=== PATIENT | male | born 1955 | race American Indian/Alaskan Native ===

== ENCOUNTER 2017-02-12 12:39 | Emergency (ER) | payer MEDICARE ==
[2017-02-12 14:29] LABS: Basophils % (Auto) 0.4 % (0.0-1.8); Eosinophils % (Auto) 0.7 % (0.0-4.3); Hemoglobin 14.4 gm/dl (11.8-15.2); Mean Corpuscular HGB Conc 33 % (32-34); Mean Corpuscular Hemoglobin 29 pg (28-32); Mean Corpuscular Volume 89 fl (84-94); Platelet Count 326 K/mm3 (140-440); Red Blood Count 4.92 M/mm3 (3.65-5.03); Red Cell Distribution Width 15.3 % (13.2-15.2); White Blood Count 7.3 K/mm3 (4.5-11.0)
--- NOTE | 2017-02-12 14:37 | Emergency Department Report ---
ED Palpitations HPI - General Chief Complaint: Arrhythmia/Palpitations Stated Complaint: HEART RATE 135 Time Seen by Provider: 02/12/17 14:24 Source: patient Mode of arrival: Ambulatory Limitations: No Limitations - History of Present Illness Initial Comments: 61-year-old male presents to the emergency department via EMS for evaluation of an elevated heart rate. Patient states he was receiving a routine health insurance physical this morning when the nurse practitioner noted an elevated heart rate in the 130s. Patient states he had a little lightheadedness this morning, but this has resolved. He denies chest pain, shortness of breath, or palpitations. Patient denies previous heart problems. He does admit that over the past 3 days he has been taking nutritional supplements. There are no other complaints. MD Complaint: rapid heart beat -: This morning Context: occured during rest - Related Data Home Medications Medication Instructions Recorded Confirmed Last Taken Cholecalciferol (Vitamin D3) 2,000 unit PO QDAY 02/27/16 06/10/16 Unknown [Vitamin D-3] Gabapentin [Neurontin] 300 mg PO Q8HR 02/27/16 06/10/16 Unknown Levothyroxine [Synthroid] 200 mcg PO QAM 02/27/16 06/10/16 Unknown Naproxen [Naprosyn] 500 mg PO BID 02/27/16 06/10/16 Unknown Omeprazole [PriLOSEC] 20 mg PO QDAY 02/27/16 06/10/16 Unknown Previous Rx's Medication Instructions Recorded Last Taken Type Apixaban [Eliquis] 5 mg PO BID #60 tablet 02/12/17 Unknown Rx Metoprolol Succinate 25 mg PO DAILY #30 tab.er.24h 02/12/17 Unknown Rx Allergies Allergy/AdvReac Type Severity Reaction Status Date / Time oxycodone AdvReac Nausea Verified 02/12/17 13:06 ED Review of Systems ROS: Stated complaint: HEART RATE 135 Other details as noted in HPI Comment: All other systems reviewed and negative Cardiovascular: as per HPI, other (lightheadedness, no loss of consciousness) ED Past Medical Hx - Past Medical History Previous Medical History?: Yes Hx GERD: Yes Hx of Cancer: Yes (THYROID-1981) Additional medical history: ANKYLOSING SPONDYLITIS. HYPOTHYROID. drug abuse - Surgical History Past Surgical History?: Yes Additional Surgical History: right ankle. RIGHT KNEE REPLACEMENT. LEFT WRIST SURGERY. TURP. THYROIDECTOMY - Family History Family history: no significant - Social History Smoking Status: Former Smoker Substance Use Type: None - Medications Home Medications: Home Medications Medication Instructions Recorded Confirmed Last Taken Type Cholecalciferol (Vitamin D3) 2,000 unit PO QDAY 02/27/16 06/10/16 Unknown History [Vitamin D-3] Gabapentin [Neurontin] 300 mg PO Q8HR 02/27/16 06/10/16 Unknown History Levothyroxine [Synthroid] 200 mcg PO QAM 02/27/16 06/10/16 Unknown History Naproxen [Naprosyn] 500 mg PO BID 02/27/16 06/10/16 Unknown History Omeprazole [PriLOSEC] 20 mg PO QDAY 02/27/16 06/10/16 Unknown History Apixaban [Eliquis] 5 mg PO BID #60 tablet 02/12/17 Unknown Rx Metoprolol Succinate 25 mg PO DAILY #30 tab.er.24h 02/12/17 Unknown Rx ED Physical Exam - General Limitations: No Limitations General appearance: alert, in no apparent distress - Head Head exam: Present: atraumatic, normocephalic - Eye Eye exam: Present: normal appearance, PERRL, EOMI - ENT ENT exam: Present: normal exam, normal orophraynx, mucous membranes moist - Neck Neck exam: Present: normal inspection, full ROM. Absent: tenderness - Respiratory Respiratory exam: Present: normal lung sounds bilaterally. Absent: respiratory distress - Cardiovascular Cardiovascular Exam: Present: regular rate, normal rhythm, normal heart sounds - GI/Abdominal GI/Abdominal exam: Present: soft, normal bowel sounds. Absent: distended, tenderness - Extremities Exam Extremities exam: Present: normal inspection, full ROM. Absent: tenderness - Back Exam Back exam: Present: normal inspection, full ROM. Absent: tenderness - Neurological Exam Neurological exam: Present: alert, oriented X3. Absent: motor sensory deficit - Skin Skin exam: Present: warm, dry, intact ED Course Vital Signs 02/12/17 13:02 Temperature 98.5 F Pulse Rate 95 H Respiratory 17 Rate Blood Pressure 126/86 O2 Sat by Pulse 100 Oximetry ED Medical Decision Making - Lab Data Result diagrams: 02/12/17 14:08 02/12/17 14:08 - EKG Data -: EKG Interpreted by Wy EKG shows normal: axis, ST-T waves Rate: normal - EKG Data Interpretation: other (atrial flutter with normal ventricular rate) - Medical Decision Making Laboratory results reviewed and discussed with the patient. Patient has remained asymptomatic in the emergency department. He continues to be in atrial flutter with variable block, but his ventricular rate is within normal limits. I have spoken with Dr. Napoles, cardiology. Patient will be placed on oral metoprolol and Eliquis. Patient will be discharged home to follow up with cardiology as an outpatient. - Differential Diagnosis palpitations, arrhythmia, hyperthyroidism Critical care attestation.: If time is entered above; I have spent that time in minutes in the direct care of this critically ill patient, excluding procedure time. ED Disposition Clinical Impression: Atrial flutter with controlled response Disposition: DISCHARGED TO HOME OR SELFCARE Is pt being admited?: No Does the pt Need Aspirin: No Condition: Stable Instructions: Atrial Flutter (ED) Prescriptions: Apixaban [Eliquis] 5 mg PO BID #60 tablet Metoprolol Succinate 25 mg PO DAILY #30 tab.er.24h Referrals: EDER NAPOLES MD [Staff Physician] - 7-10 days Time of Disposition: 16:44
[2017-02-12 14:39] LABS: Anion Gap 16 mmol/L; Blood Urea Nitrogen 15 mg/dL (9-20); Calcium 9.1 mg/dL (8.4-10.2); Carbon Dioxide 24 mmol/L (22-30); Chloride 101.7 mmol/L (98-107); Glucose 98 mg/dL (75-100); INR 0.99 (0.87-1.13); Potassium 4.4 mmol/L (3.6-5.0); Sodium 137 mmol/L (137-145)
[2017-02-12 17:50] VITALS: BP 117/68
== END 2017-02-12 18:00 | disposition home or self-care (01) ==
LOC: ED 12:39
DX: I48.92 Unspecified atrial flutter (principal); K21.9 Gastro-esophageal reflux disease without esophagitis; Z87.891 Personal history of nicotine dependence; Z85.850 Personal history of malignant neoplasm of thyroid
CPT/HCPCS: 36415; 80048; 84443; 84484; 85025; 85610; 85730; 93005; 93010; 99284

== ENCOUNTER 2017-10-19 17:02 | Emergency (ER) | payer MEDICARE ==
[2017-10-19 18:31] LABS: Basophils % (Auto) 0.4 % (0.0-1.8); Eosinophils % (Auto) 0.5 % (0.0-4.3); Hematocrit 49.5 % (35.5-45.6); Hemoglobin 16.2 gm/dl (11.8-15.2); Mean Corpuscular HGB Conc 33 % (32-34); Mean Corpuscular Hemoglobin 30 pg (28-32); Mean Corpuscular Volume 92 fl (84-94); Platelet Count 299 K/mm3 (140-440); Red Blood Count 5.39 M/mm3 (3.65-5.03); Red Cell Distribution Width 14.7 % (13.2-15.2); White Blood Count 8.4 K/mm3 (4.5-11.0)
[2017-10-19 18:51] LABS: Anion Gap 20 mmol/L; BUN/Creatinine Ratio 8; Blood Urea Nitrogen 10 mg/dL (9-20); Calcium 9.5 mg/dL (8.4-10.2); Carbon Dioxide 27 mmol/L (22-30); Chloride 101.5 mmol/L (98-107); Glucose 83 mg/dL (75-100); Potassium 4.6 mmol/L (3.6-5.0); Sodium 144 mmol/L (137-145)
[2017-10-19 23:12] LABS: Urine Drugs of Abuse Note Disclamer
[2017-10-19 23:39] LABS: Bilirubin,Urine NEG (Negative); Blood,Urine NEG (Negative); Ketones,Urine TR mg/dL (Negative); Leukocyte Esterase,Urine NEG (Negative); Mucus,Urine FEW /HPF; Nitrite,Urine NEG (Negative); Sperm,Urine FEW /HPF (NP)
--- NOTE | 2017-10-20 00:30 | Emergency Department Report ---
ED Psych HPI - General Chief Complaint: Psych Stated Complaint: MEDICAL CLEARANCE Time Seen by Provider: 10/19/17 23:21 Source: patient Mode of arrival: Ambulatory - History of Present Illness Initial Comments: She is a 62-year-old male past history of substance abuse who presents with suicidal ideation. Patient states that he's been depressed because he's been using cocaine. He states he wants to stop using cocaine and however he feels that his life is worthless and he has not been to a 4. Patient does not have a concrete plan for suicidal ideation. He does not hear any voices and denies any homicidal ideation. Patient states that he just has generalized body pain and just feels weak. No nausea no vomiting no chest pain. No fevers. - Related Data Home Medications Medication Instructions Recorded Confirmed Last Taken Cholecalciferol (Vitamin D3) 2,000 unit PO QDAY 02/27/16 06/10/16 Unknown [Vitamin D-3] Gabapentin [Neurontin] 300 mg PO Q8HR 02/27/16 06/10/16 Unknown Levothyroxine [Synthroid] 200 mcg PO QAM 02/27/16 06/10/16 Unknown Naproxen [Naprosyn] 500 mg PO BID 02/27/16 06/10/16 Unknown Omeprazole [PriLOSEC] 20 mg PO QDAY 02/27/16 06/10/16 Unknown Previous Rx's Medication Instructions Recorded Last Taken Type Apixaban [Eliquis] 5 mg PO BID #60 tablet 02/12/17 Unknown Rx Metoprolol Succinate 25 mg PO DAILY #30 tab.er.24h 02/12/17 Unknown Rx Allergies Allergy/AdvReac Type Severity Reaction Status Date / Time oxycodone AdvReac Nausea Verified 02/12/17 13:06 ED Review of Systems ROS: Stated complaint: MEDICAL CLEARANCE Other details as noted in HPI Constitutional: denies: chills, fever Eyes: denies: eye pain, eye discharge, vision change ENT: denies: ear pain, throat pain Respiratory: denies: cough, shortness of breath, wheezing Cardiovascular: denies: chest pain, palpitations Endocrine: no symptoms reported Gastrointestinal: denies: abdominal pain, nausea, diarrhea Genitourinary: denies: urgency, dysuria Musculoskeletal: denies: back pain, joint swelling, arthralgia Skin: denies: rash, lesions Neurological: denies: headache, weakness, paresthesias Psychiatric: depression, suicidal thoughts. denies: anxiety Hematological/Lymphatic: denies: easy bleeding, easy bruising ED Past Medical Hx - Past Medical History Previous Medical History?: Yes Hx Hypertension: Yes Hx GERD: Yes Hx Psychiatric Treatment: Yes Additional medical history: ANKYLOSING SPONDYLITIS. HYPOTHYROID. drug abuse - Surgical History Past Surgical History?: Yes Additional Surgical History: right ankle. RIGHT KNEE REPLACEMENT. LEFT WRIST SURGERY. TURP. THYROIDECTOMY - Social History Smoking Status: Unknown if ever smoked Substance Use Type: Cocaine - Medications Home Medications: Home Medications Medication Instructions Recorded Confirmed Last Taken Type Cholecalciferol (Vitamin D3) 2,000 unit PO QDAY 02/27/16 06/10/16 Unknown History [Vitamin D-3] Gabapentin [Neurontin] 300 mg PO Q8HR 02/27/16 06/10/16 Unknown History Levothyroxine [Synthroid] 200 mcg PO QAM 02/27/16 06/10/16 Unknown History Naproxen [Naprosyn] 500 mg PO BID 02/27/16 06/10/16 Unknown History Omeprazole [PriLOSEC] 20 mg PO QDAY 02/27/16 06/10/16 Unknown History Apixaban [Eliquis] 5 mg PO BID #60 tablet 02/12/17 Unknown Rx Metoprolol Succinate 25 mg PO DAILY #30 tab.er.24h 02/12/17 Unknown Rx ED Physical Exam - General Limitations: No Limitations General appearance: alert, in no apparent distress - Head Head exam: Present: atraumatic, normocephalic - Eye Eye exam: Present: normal appearance - ENT ENT exam: Present: mucous membranes moist - Neck Neck exam: Present: normal inspection - Respiratory Respiratory exam: Present: normal lung sounds bilaterally. Absent: respiratory distress - Cardiovascular Cardiovascular Exam: Present: regular rate, normal rhythm. Absent: systolic murmur, diastolic murmur, rubs, gallop - GI/Abdominal GI/Abdominal exam: Present: soft, normal bowel sounds - Rectal Rectal exam: Present: deferred - Extremities Exam Extremities exam: Present: normal inspection - Back Exam Back exam: Present: normal inspection - Neurological Exam Neurological exam: Present: alert, oriented X3 - Psychiatric Psychiatric exam: Present: normal affect, normal mood - Skin Skin exam: Present: warm, dry, intact, normal color. Absent: rash ED Course Vital Signs 10/19/17 17:55 Temperature 98.7 F Pulse Rate 82 Respiratory 16 Rate Blood Pressure 128/81 O2 Sat by Pulse 98 Oximetry ED Medical Decision Making - Lab Data Result diagrams: 10/19/17 18:12 10/19/17 18:12 Lab Results 10/19/17 10/19/17 10/19/17 Range/Units 18:12 18:12 18:12 WBC 8.4 (4.5-11.0) K/mm3 RBC 5.39 H (3.65-5.03) M/mm3 Hgb 16.2 H (11.8-15.2) gm/dl Hct 49.5 H (35.5-45.6) % MCV 92 (84-94) fl MCH 30 (28-32) pg MCHC 33 (32-34) % RDW 14.7 (13.2-15.2) % Plt Count 299 (140-440) K/mm3 Lymph % (Auto) 26.4 (13.4-35.0) % Ward % (Auto) 9.7 H (0.0-7.3) % Eos % (Auto) 0.5 (0.0-4.3) % Baso % (Auto) 0.4 (0.0-1.8) % Lymph # 2.2 (1.2-5.4) K/mm3 Ward # 0.8 (0.0-0.8) K/mm3 Eos # 0.0 (0.0-0.4) K/mm3 Baso # 0.0 (0.0-0.1) K/mm3 Seg Neutrophils % 63.0 (40.0-70.0) % Seg Neutrophils # 5.3 (1.8-7.7) K/mm3 Sodium 144 (137-145) mmol/L Potassium 4.6 (3.6-5.0) mmol/L Chloride 101.5 (98-107) mmol/L Carbon Dioxide 27 (22-30) mmol/L Anion Gap 20 mmol/L BUN 10 (9-20) mg/dL Creatinine 1.2 (0.8-1.5) mg/dL Estimated GFR > 60 ml/min BUN/Creatinine Ratio 8 % Glucose 83 (75-100) mg/dL Calcium 9.5 (8.4-10.2) mg/dL Urine Color (Yellow) Urine Turbidity (Clear) Urine pH (5.0-7.0) Ur Specific [place] (1.003-1.030) Urine Protein (Negative) mg/dL Urine Glucose (UA) (Negative) mg/dL Urine Ketones (Negative) mg/dL Urine Blood (Negative) Urine Nitrite (Negative) Urine Bilirubin (Negative) Urine Urobilinogen (<2.0) mg/dL Ur Leukocyte Esterase (Negative) Urine WBC (Auto) (0.0-6.0) /HPF Urine RBC (Auto) (0.0-6.0) /HPF U Epithel Cells (Auto) (0-13.0) /HPF Urine Mucus /HPF Urine Sperm (GRIT BLASTER) /HPF Urine Opiates Screen Urine Methadone Screen Ur Barbiturates Screen Ur Phencyclidine Scrn Ur Amphetamines Screen U Benzodiazepines Scrn Urine Cocaine Screen U Marijuana (THC) Screen Drugs of Abuse Note Plasma/Serum Alcohol < 0.01 (0-0.07) gm% 10/19/17 10/19/17 Range/Units Unknown Unknown WBC (4.5-11.0) K/mm3 RBC (3.65-5.03) M/mm3 Hgb (11.8-15.2) gm/dl Hct (35.5-45.6) % MCV (84-94) fl MCH (28-32) pg MCHC (32-34) % RDW (13.2-15.2) % Plt Count (140-440) K/mm3 Lymph % (Auto) (13.4-35.0) % Ward % (Auto) (0.0-7.3) % Eos % (Auto) (0.0-4.3) % Baso % (Auto) (0.0-1.8) % Lymph # (1.2-5.4) K/mm3 Ward # (0.0-0.8) K/mm3 Eos # (0.0-0.4) K/mm3 Baso # (0.0-0.1) K/mm3 Seg Neutrophils % (40.0-70.0) % Seg Neutrophils # (1.8-7.7) K/mm3 Sodium (137-145) mmol/L Potassium (3.6-5.0) mmol/L Chloride (98-107) mmol/L Carbon Dioxide (22-30) mmol/L Anion Gap mmol/L BUN (9-20) mg/dL Creatinine (0.8-1.5) mg/dL Estimated GFR ml/min BUN/Creatinine Ratio % Glucose (75-100) mg/dL Calcium (8.4-10.2) mg/dL Urine Color [place] (Yellow) Urine Turbidity Clear (Clear) Urine pH 5.0 (5.0-7.0) Ur Specific [place] 1.031 H (1.003-1.030) Urine Protein 30 mg/dl (Negative) mg/dL Urine Glucose (UA) Neg (Negative) mg/dL Urine Ketones Tr (Negative) mg/dL Urine Blood Neg (Negative) Urine Nitrite Neg (Negative) Urine Bilirubin Neg (Negative) Urine Urobilinogen 2.0 (<2.0) mg/dL Ur Leukocyte Esterase Neg (Negative) Urine WBC (Auto) 2.0 (0.0-6.0) /HPF Urine RBC (Auto) 8.0 (0.0-6.0) /HPF U Epithel Cells (Auto) < 1.0 (0-13.0) /HPF Urine Mucus Few /HPF Urine Sperm Few (GRIT BLASTER) /HPF Urine Opiates Screen Presumptive negative Urine Methadone Screen Presumptive negative Ur Barbiturates Screen Presumptive negative Ur Phencyclidine Scrn Presumptive negative Ur Amphetamines Screen Presumptive negative U Benzodiazepines Scrn Presumptive negative Urine Cocaine Screen Presumptive positive U Marijuana (THC) Screen Presumptive positive Drugs of Abuse Note Disclamer Plasma/Serum Alcohol (0-0.07) gm% - Radiology Data Radiology results: report reviewed, image reviewed - Medical Decision Making Cdx: Substance-induced mood disorder Medical diagnosis: Cocaine withdrawal, depression, electrolyte abnormality I will get CBC, CMP, mental worker evaluation, urinalysis The patient seen that he will likely commit suicide due to his cocaine withdraw all signed 1013 on this patient. Mental health worker agrees with plan Critical care attestation.: If time is entered above; I have spent that time in minutes in the direct care of this critically ill patient, excluding procedure time. ED Disposition Clinical Impression: Polysubstance abuse, Suicidal ideation, Myalgia Depression Qualifiers: Depression Type: unspecified Qualified Code(s): F32.9 - Major depressive disorder, single episode, unspecified Disposition: DC/TX-65 PSY HOSP/PSY UNIT Is pt being admited?: No Does the pt Need Aspirin: No Condition: Stable Referrals: [facility] [Outside] - 3-5 Days
[2017-10-20] MEDS ORDERED: TYLENOL PO ONE (01:31)
[2017-10-20] MEDS ORDERED: ALUM-MAG HYDROX-SIMETH 200-200-20MG/5ML PO PRN (01:32)
[2017-10-20] MEDS ORDERED: MILK OF MAGNESIA PO PRN (01:32)
[2017-10-20] MEDS ORDERED: TYLENOL PO PRN (01:32)
[2017-10-20 06:20] VITALS: BP 132/68
--- NOTE | 2017-10-20 12:15 | Consultation ---
History of Present Illness - Reason for Consult Consult date: 10/20/17 Reason for consult: Mental Health Evaluation Requesting physician: CORNELIUS VIRK - Chief Complaint Chief complaint: "I want help" - History of Present Psychiatric Illness A 62-year-old male past history of substance abuse who presents with suicidal ideation. Today patient is calm and cooperative during the assessment. He stated that he want help to get off cocaine. He stated that he been using cocaine for 40 plus years. He stated feeling hopeless, worthless, and sad constantly because of his life and his drug use. He stated that he attempted suicide a year ago by cutting his wrist. He feels like he has let himself and his family down because of his behaviors. He stated binging on cocaine for the past week. He admit attending multiple rehab services for substance abuse, but would relapse once discharged. He could not confirm or deny being suicidal when asked. He denies HI's and AVH's. He admit to erratic sleep, but denies a poor appetite. He denies alcohol consumption (etoh). He stated that he would like residential rehab services for his substance abuse. Medications and Allergies Allergies Allergy/AdvReac Type Severity Reaction Status Date / Time oxycodone AdvReac Nausea Verified 02/12/17 13:06 Home Medications Medication Instructions Recorded Confirmed Last Taken Type Cholecalciferol (Vitamin D3) 2,000 unit PO QDAY 02/27/16 06/10/16 Unknown History [Vitamin D-3] Gabapentin [Neurontin] 300 mg PO Q8HR 02/27/16 06/10/16 Unknown History Levothyroxine [Synthroid] 200 mcg PO QAM 02/27/16 06/10/16 Unknown History Naproxen [Naprosyn] 500 mg PO BID 02/27/16 06/10/16 Unknown History Omeprazole [PriLOSEC] 20 mg PO QDAY 02/27/16 06/10/16 Unknown History Apixaban [Eliquis] 5 mg PO BID #60 tablet 02/12/17 Unknown Rx Metoprolol Succinate 25 mg PO DAILY #30 tab.er.24h 02/12/17 Unknown Rx Past psychiatric history - Past Medical History Past Medical History: hypertension, other (ankylosing spondylitis) Past Surgical History: No surgical history - past Psychiatric treatment and history psychiatric treatment history: Mutiple rehab services for substance abuse. Fam hx of substance abuse. - Social History Social history: lives with family Mental Status Exam - Vital signs Last Vital Signs Temp 98 F 10/20/17 04:20 Pulse 87 10/20/17 04:20 Resp 18 10/20/17 01:26 BP 132/68 10/20/17 04:20 Pulse Ox 99 10/20/17 01:26 - Exam Narrative exam: MSE: Appearance: calm, cooperative Behavior: regular eye contact Speech: regular rate and tone Mood: withdrawn Affect: flat Thought Process: linear Thought Content: denies SI/HI's and AVH's Motor Activity: ambulatory Cognition: A/O x3 Insight: fair Judgment: variable Results Result Diagrams: 10/19/17 18:12 10/19/17 18:12 Abnormal lab results 10/19/17 10/19/17 Range/Units 18:12 Unknown RBC 5.39 H (3.65-5.03) M/mm3 Hgb 16.2 H (11.8-15.2) gm/dl Hct 49.5 H (35.5-45.6) % [place] % (Auto) 9.7 H (0.0-7.3) % Ur Specific [place] 1.031 H (1.003-1.030) All other labs normal. Assessment and Plan Assessment and plan: Impression: MDD Severe Type. Substance Use DO (cocaine and marijuana). Today patient is calm and cooperative during the assessment. Patient cannot confirm or deny SI's. DDx: R/O Bipolar, R/O Substance Induced Mood DO Recommendation/Plan: Continue 1013 with placement to [facility] today.
== END 2017-10-20 09:00 ==
LOC: ED 17:02
DX: F32.9 Major depressive disorder, single episode, unspecified (principal); R45.851 Suicidal ideations; F14.10 Cocaine abuse, uncomplicated; M79.1 Myalgia; I10 Essential (primary) hypertension; K21.9 Gastro-esophageal reflux disease without esophagitis
CPT/HCPCS: 36415; 80048; 80307; 81001; 85025; 99285; G0480; 80320

== ENCOUNTER 2018-01-23 17:48 | Emergency (ER) | payer MEDICARE ==
[2018-01-23 18:57] LABS: Basophils % (Auto) 0.5 % (0.0-1.8); Eosinophils # (Auto) 0.1 K/mm3 (0.0-0.4); Eosinophils % (Auto) 0.6 % (0.0-4.3); Hematocrit 47.4 % (35.5-45.6); Hemoglobin 15.9 gm/dl (11.8-15.2); Lymphocytes # (Auto) 2.8 K/mm3 (1.2-5.4); Lymphocytes % (Auto) 32.2 % (13.4-35.0); Mean Corpuscular HGB Conc 34 % (32-34); Mean Corpuscular Hemoglobin 31 pg (28-32); Mean Corpuscular Volume 92 fl (84-94); Monocytes # (Auto) 0.9 K/mm3 (0.0-0.8); Monocytes % (Auto) 9.9 % (0.0-7.3); Platelet Count 311 K/mm3 (140-440); Red Blood Count 5.14 M/mm3 (3.65-5.03)
[2018-01-23 19:22] LABS: BUN/Creatinine Ratio 14; Blood Urea Nitrogen 14 mg/dL (9-20); Calcium 9.8 mg/dL (8.4-10.2); Hemolysis Index 34
[2018-01-24 00:52] LABS: Amphetamine Screen,Urine PRESUMPTIVE NEGATIVE; Benzodiazepines Screen,Urine PRESUMPTIVE NEGATIVE; Cannabinoid Screen,Urine PRESUMPTIVE NEGATIVE; Methadone Screen,Urine PRESUMPTIVE NEGATIVE; Opiate Screen,Urine PRESUMPTIVE NEGATIVE
[2018-01-24 00:54] LABS: Bacteria,Urine 1+ /HPF (Negative); Bilirubin,Urine NEG (Negative); Blood,Urine NEG (Negative); Color,Urine Yellow (Yellow); Mucus,Urine 3+ /HPF; Protein,Urine <15 mg/dL mg/dL (Negative); Sperm,Urine FEW /HPF (NP)
[2018-01-24 01:03] LABS: Cocaine Screen,Urine PRESUMPTIVE POSITIVE
--- NOTE | 2018-01-24 01:57 | Emergency Department Report ---
HPI - General Chief Complaint: Psych Time Seen by Provider: 01/24/18 01:44 - HPI HPI: Room 19 The patient is a 62-year-old male presenting with a chief complaint suicidal ideation. The patient states he has a history of crack abuse for the past 3 days he has had suicidal ideation. Patient denies any recent attempts at harming himself states several years ago he attempted to cut his wrist. The patient states he has thought about walking in front of traffic or stabbing himself in the heart recently. Location: Mental state Duration: 3 days Quality: Suicidal Severity: Severe Modifying factors: [see above] Context: [see above] Mode of transportation: [not driving] ED Past Medical Hx - Past Medical History Hx Hypertension: Yes Hx GERD: Yes Hx Psychiatric Treatment: Yes Additional medical history: ANKYLOSING SPONDYLITIS. HYPOTHYROID. drug abuse - Surgical History Additional Surgical History: right ankle. RIGHT KNEE REPLACEMENT. LEFT WRIST SURGERY. TURP. THYROIDECTOMY - Family History Family history: no significant - Social History Smoking Status: Current Every Day Smoker (1/2 pack per day) Substance Use Type: Cocaine - Medications Home Medications: Home Medications Medication Instructions Recorded Confirmed Last Taken Type Cholecalciferol (Vitamin D3) 2,000 unit PO QDAY 02/27/16 06/10/16 Unknown History [Vitamin D-3] Gabapentin [Neurontin] 300 mg PO Q8HR 02/27/16 06/10/16 Unknown History Levothyroxine (Nf) [Synthroid] 200 mcg PO QAM 02/27/16 06/10/16 Unknown History Naproxen [Naprosyn] 500 mg PO BID 02/27/16 06/10/16 Unknown History Omeprazole [PriLOSEC] 20 mg PO QDAY 02/27/16 06/10/16 Unknown History Apixaban [Eliquis] 5 mg PO BID #60 tablet 02/12/17 Unknown Rx Metoprolol Succinate 25 mg PO DAILY #30 tab.er.24h 02/12/17 Unknown Rx ED Review of Systems ROS: Stated complaint: SUBSTANCE ABUSE Other details as noted in HPI Gastrointestinal: other (hunger since he has not eaten for 3 days) Psychiatric: suicidal thoughts Physical Exam - Physical Exam Vital Signs: Vital Signs 01/23/18 01/24/18 17:54 00:54 Temperature 97.7 F 98.3 F Pulse Rate 88 66 Respiratory 16 18 Rate Blood Pressure 140/82 115/67 O2 Sat by Pulse 96 98 Oximetry Physical Exam: GENERAL: The patient is well-developed well-nourished male lying on stretcher not appearing to be in acute distress. [] HEENT: Normocephalic. Atraumatic. Extraocular motions are intact. Patient has moist mucous membranes. NECK: Supple. Trachea midline CHEST/LUNGS: Clear to auscultation. There is no respiratory distress noted. HEART/CARDIOVASCULAR: Regular. There is no tachycardia. There is no gallop rub or murmur. ABDOMEN: Abdomen is soft, nontender. Patient has normal bowel sounds. There is no abdominal distention. SKIN: There is no rash. There is no edema. There is no diaphoresis. NEURO: The patient is awake, alert, and oriented. The patient is cooperative. The patient has normal speech MUSCULOSKELETAL: There is no evidence of acute injury. ED Course Vital Signs 01/23/18 01/24/18 17:54 00:54 Temperature 97.7 F 98.3 F Pulse Rate 88 66 Respiratory 16 18 Rate Blood Pressure 140/82 115/67 O2 Sat by Pulse 96 98 Oximetry ED Medical Decision Making - Lab Data Result diagrams: 01/23/18 18:43 01/23/18 18:43 Laboratory Tests 01/23/18 01/23/18 01/23/18 18:43 18:43 18:43 WBC RBC Hgb Hct MCV MCH MCHC RDW Plt Count Lymph % (Auto) [place] % (Auto) Eos % (Auto) Baso % (Auto) Lymph # [place] # Eos # Baso # Seg Neutrophils % Seg Neutrophils # Sodium 143 Potassium 4.4 Chloride 101.6 Carbon Dioxide 27 Anion Gap 19 BUN 14 Creatinine 1.0 Estimated GFR > 60 BUN/Creatinine Ratio 14 Glucose 96 Calcium 9.8 Urine Color Urine Turbidity Urine pH Ur Specific [place] Urine Protein Urine Glucose (UA) Urine Ketones Urine Blood Urine Nitrite Urine Bilirubin Urine Urobilinogen Ur Leukocyte Esterase Urine WBC (Auto) Urine RBC (Auto) U Epithel Cells (Auto) Urine Bacteria (Auto) Urine Mucus Urine Sperm Salicylates < 0.3 L Urine Opiates Screen Urine Methadone Screen Acetaminophen < 5.0 L Ur Barbiturates Screen Ur Phencyclidine Scrn Ur Amphetamines Screen U Benzodiazepines Scrn Urine Cocaine Screen U Marijuana (THC) Screen Drugs of Abuse Note Plasma/Serum Alcohol 01/23/18 01/23/18 01/23/18 18:43 18:43 Unknown WBC 8.7 RBC 5.14 H Hgb 15.9 H Hct 47.4 H MCV 92 MCH 31 MCHC 34 RDW 15.0 Plt Count 311 Lymph % (Auto) 32.2 [place] % (Auto) 9.9 H Eos % (Auto) 0.6 Baso % (Auto) 0.5 Lymph # 2.8 [place] # 0.9 H Eos # 0.1 Baso # 0.0 Seg Neutrophils % 56.8 Seg Neutrophils # 4.9 Sodium Potassium Chloride Carbon Dioxide Anion Gap BUN Creatinine Estimated GFR BUN/Creatinine Ratio Glucose Calcium Urine Color Yellow Urine Turbidity Clear Urine pH 5.0 Ur Specific [place] 1.026 Urine Protein <15 mg/dl Urine Glucose (UA) Neg Urine Ketones Neg Urine Blood Neg Urine Nitrite Neg Urine Bilirubin Neg Urine Urobilinogen 2.0 Ur Leukocyte Esterase Neg Urine WBC (Auto) 5.0 Urine RBC (Auto) 3.0 U Epithel Cells (Auto) 1.0 Urine Bacteria (Auto) 1+ Urine Mucus 3+ Urine Sperm Few Salicylates Urine Opiates Screen Urine Methadone Screen Acetaminophen Ur Barbiturates Screen Ur Phencyclidine Scrn Ur Amphetamines Screen U Benzodiazepines Scrn Urine Cocaine Screen U Marijuana (THC) Screen Drugs of Abuse Note Plasma/Serum Alcohol < 0.01 01/23/18 Unknown WBC RBC Hgb Hct MCV MCH MCHC RDW Plt Count Lymph % (Auto) [place] % (Auto) Eos % (Auto) Baso % (Auto) Lymph # [place] # Eos # Baso # Seg Neutrophils % Seg Neutrophils # Sodium Potassium Chloride Carbon Dioxide Anion Gap BUN Creatinine Estimated GFR BUN/Creatinine Ratio Glucose Calcium Urine Color Urine Turbidity Urine pH Ur Specific [place] Urine Protein Urine Glucose (UA) Urine Ketones Urine Blood Urine Nitrite Urine Bilirubin Urine Urobilinogen Ur Leukocyte Esterase Urine WBC (Auto) Urine RBC (Auto) U Epithel Cells (Auto) Urine Bacteria (Auto) Urine Mucus Urine Sperm Salicylates Urine Opiates Screen Presumptive negative Urine Methadone Screen Presumptive negative Acetaminophen Ur Barbiturates Screen Presumptive negative Ur Phencyclidine Scrn Presumptive negative Ur Amphetamines Screen Presumptive negative U Benzodiazepines Scrn Presumptive negative Urine Cocaine Screen Presumptive positive U Marijuana (THC) Screen Presumptive negative Drugs of Abuse Note Disclamer Plasma/Serum Alcohol - Differential Diagnosis suicidal ideation Critical care attestation.: If time is entered above; I have spent that time in minutes in the direct care of this critically ill patient, excluding procedure time. ED Disposition Clinical Impression: Suicidal ideation, Cocaine abuse Disposition: DC/TX-65 PSY HOSP/PSY UNIT Is pt being admited?: No Does the pt Need Aspirin: No Condition: Serious Referrals: CAITY CARLSON PA [Primary Care Provider] - 3-5 Days Time of Disposition: 01:56 (awaiting acceptance)
[2018-01-24 08:48] VITALS: BP 104/67
--- NOTE | 2018-01-24 12:54 | Consultation ---
History of Present Illness - Reason for Consult Consult date: 01/24/18 Reason for consult: Mental Health Evaluation Requesting physician: QUE TURCIOS - Chief Complaint Chief complaint: "I am suicidal" - History of Present Psychiatric Illness 62-year-old male presenting with a chief complaint suicidal ideation. Today the patient is calm and cooperative during the assessment. He stated that he need to stop using "drugs." He stated that he is "depressed" because he fail to stop using recreational drugs. He stated that he has used recreational drugs especially cocaine for more than 40 years. He stated cutting both his wrist in the past to kill himself. He endorses SI's without a plan when asked. He stated multiple rehab services in the past, but relapse withing days. He stated, "I cannot continue this." He stated that he feels worthless and helpless. He rate his depression 10/10, with 10 being the worse. He denies HI's and AVH's. He denies any manic episodes in the past. He denies excessive alcohol consumption ( etoh). Medications and Allergies Allergies Allergy/AdvReac Type Severity Reaction Status Date / Time oxycodone AdvReac Nausea Verified 02/12/17 13:06 Home Medications Medication Instructions Recorded Confirmed Last Taken Type Cholecalciferol (Vitamin D3) 2,000 unit PO QDAY 02/27/16 06/10/16 Unknown History [Vitamin D-3] Gabapentin [Neurontin] 300 mg PO Q8HR 02/27/16 06/10/16 Unknown History Levothyroxine (Nf) [Synthroid] 200 mcg PO QAM 02/27/16 06/10/16 Unknown History Naproxen [Naprosyn] 500 mg PO BID 02/27/16 06/10/16 Unknown History Omeprazole [PriLOSEC] 20 mg PO QDAY 02/27/16 06/10/16 Unknown History Apixaban [Eliquis] 5 mg PO BID #60 tablet 02/12/17 Unknown Rx Metoprolol Succinate 25 mg PO DAILY #30 tab.er.24h 02/12/17 Unknown Rx Past psychiatric history - Past Medical History Past Medical History: GERD, other (ANKYLOSING SPONDYLITIS) Past Surgical History: No surgical history - past Psychiatric treatment and history Psych: Depression psychiatric treatment history: Mutiple inpatient/rehabs services. Denies a fam psy hx. - Social History Social history: other (Homeless) Mental Status Exam - Vital signs Last Vital Signs Temp 98.2 F 01/24/18 08:47 Pulse 78 01/24/18 08:47 Resp 12 01/24/18 08:47 BP 104/67 01/24/18 08:47 Pulse Ox 98 01/24/18 08:47 - Exam Narrative exam: MSE: Appearance: calm, cooperative Behavior: regular eye contact Speech: regular rate and tone Mood: "depressed" Affect: congruent to mood Thought Process: circumstantial Thought Content: denies HI's and AVH's Motor Activity: lying in bed Cognition: A/O x3 Insight: fair Judgment: fair Results Result Diagrams: 01/23/18 18:43 01/23/18 18:43 Abnormal lab results 01/23/18 01/23/18 01/23/18 Range/Units 18:43 18:43 18:43 RBC 5.14 H (3.65-5.03) M/mm3 Hgb 15.9 H (11.8-15.2) gm/dl Hct 47.4 H (35.5-45.6) % [place] % (Auto) 9.9 H (0.0-7.3) % [place] # 0.9 H (0.0-0.8) K/mm3 Salicylates < 0.3 L (2.8-20.0) mg/dL Acetaminophen < 5.0 L (10.0-30.0) ug/mL All other labs normal. Assessment and Plan Assessment and plan: Impression: MDD Severe Type. Substance Use DO (cocaine). Cannabis Use DO. Today patient is calm and cooperative during the assessment. The patient endorses SI' s without a plan. DDx: R/O Bipolar, R/O Substance Induced Mood DO Recommendation/Plan: Continue 1013 with placement to [facility] today.
== END 2018-01-24 12:14 ==
LOC: ED 17:48
DX: F32.9 Major depressive disorder, single episode, unspecified (principal); F14.10 Cocaine abuse, uncomplicated; K21.9 Gastro-esophageal reflux disease without esophagitis; Z59.0 Homelessness; Z88.5 Allergy status to narcotic agent; Z79.899 Other long term (current) drug therapy
CPT/HCPCS: 36415; 80048; 80307; 81001; 85025; 99285; G0480; 80320

== ENCOUNTER 2018-11-22 15:11 | Emergency (ER) | payer MEDICARE ==
--- NOTE | 2018-11-22 19:36 | Emergency Department Report ---
Abscess Boil HPI - HPI Chief Complaint: Skin/Abscess/Foreign Body Stated Complaint: CYST LT SHOULDER Time Seen by Provider: 11/22/18 18:49 Duration: 4 Days Location: Back History: Yes Pain, No Fever, No Purulent Drainage, No Numbness, No Foreign Body, No Previous History, No Insect Bite HPI: This is a 3-year-old male presents to ED complaining of pain and redness to his left shoulder back in the past 4 weeks. Patient states his bit bigger since initially started. Patient says does not recall any insect bite. Home Medications: Home Medications Medication Instructions Recorded Confirmed Last Taken Cholecalciferol (Vitamin D3) 2,000 unit PO QDAY 02/27/16 06/10/16 Unknown [Vitamin D-3] Gabapentin [Neurontin] 300 mg PO Q8HR 02/27/16 06/10/16 Unknown Levothyroxine (Nf) [Synthroid] 200 mcg PO QAM 02/27/16 06/10/16 Unknown Omeprazole [PriLOSEC] 20 mg PO QDAY 02/27/16 06/10/16 Unknown Previous Rx's Medication Instructions Recorded Last Taken Type Apixaban [Eliquis] 5 mg PO BID #60 tablet 02/12/17 Unknown Rx Metoprolol Succinate 25 mg PO DAILY #30 tab.er.24h 02/12/17 Unknown Rx Naproxen [Naprosyn TAB] 500 mg PO BID #30 tablet 11/22/18 Unknown Rx Sulfamethoxazole/Trimethoprim 1 each PO BID #10 tablet 11/22/18 Unknown Rx [Bactrim DS TAB] Allergies/Adverse Reactions: Allergies Allergy/AdvReac Type Severity Reaction Status Date / Time oxycodone AdvReac Nausea Verified 02/12/17 13:06 ED Review of Systems ROS: Stated complaint: CYST LT SHOULDER Other details as noted in HPI ED Past Medical Hx - Past Medical History Hx Hypertension: Yes Hx GERD: Yes Hx Psychiatric Treatment: Yes Additional medical history: ANKYLOSING SPONDYLITIS. HYPOTHYROID. drug abuse - Surgical History Past Surgical History?: Yes Additional Surgical History: right ankle. RIGHT KNEE REPLACEMENT. LEFT WRIST SURGERY. TURP. THYROIDECTOMY - Social History Smoking Status: Current Every Day Smoker Substance Use Type: None - Medications Home Medications: Home Medications Medication Instructions Recorded Confirmed Last Taken Type Cholecalciferol (Vitamin D3) 2,000 unit PO QDAY 02/27/16 06/10/16 Unknown History [Vitamin D-3] Gabapentin [Neurontin] 300 mg PO Q8HR 02/27/16 06/10/16 Unknown History Levothyroxine (Nf) [Synthroid] 200 mcg PO QAM 02/27/16 06/10/16 Unknown History Omeprazole [PriLOSEC] 20 mg PO QDAY 02/27/16 06/10/16 Unknown History Apixaban [Eliquis] 5 mg PO BID #60 tablet 02/12/17 Unknown Rx Metoprolol Succinate 25 mg PO DAILY #30 tab.er.24h 02/12/17 Unknown Rx Naproxen [Naprosyn TAB] 500 mg PO BID #30 tablet 11/22/18 Unknown Rx Sulfamethoxazole/Trimethoprim 1 each PO BID #10 tablet 11/22/18 Unknown Rx [Bactrim DS TAB] ED Abscess Boil Physical Exam - Exam General: Vital signs noted. No distress. Alert and acting appropriately. Front/Back of Body, Lg (Color): 1 - 5-6 cm flacculant, erythematous, tender to palpation abscess Size: >5 cm Exam: Yes Tenderness, Yes Fluctuance, Yes Surrounding Cellulites/Erythema, Yes Normal Neurologic Exam, Yes Normal Circulation, No Lymphangitis, No Crepitation, No Heart Murmur I & D Note - I & D Note I & D Note: Patient positioned appropriately, 6cc lidocaine without epinephrine was used as a local anesthetic. #11 blade scalpal used for single incision. Additional local anesthetic injected into surrounding viable tissue prior to blunt dissection of loculated adhesions. Copius drainage of pus. Wound packed with iodoform gauze. Procedure tolerated without complications. Wound dressed with sterile 4x4 guaze and paper tape. Pt tolerated procedure well. ED Course Vital Signs 11/22/18 15:24 Temperature 97.8 F Pulse Rate 65 Respiratory 16 Rate Blood Pressure 112/66 O2 Sat by Pulse 100 Oximetry Critical care attestation.: If time is entered above; I have spent that time in minutes in the direct care of this critically ill patient, excluding procedure time. ED Medical Decision Making - Medical Decision Making 63-year-old male presents with left scapular back abscess. Abscesses drained, see I&D note. Discussed the patient to return in 3 days for packing removal. Discussed keep wound dry. Patient understands instructions and will follow-up. ED Disposition Clinical Impression: Abscess or cellulitis of back Disposition: - TO HOME OR SELFCARE Is pt being admited?: No Does the pt Need Aspirin: No Condition: Stable Instructions: Abscess (ED), Abscess Incision and Drainage (ED) Additional Instructions: Make sure to follow up with the primary care physician as discussed. Take all your medications as you've been prescribed. If you have any worsening symptoms or develop new symptoms please return to ED immediately. Prescriptions: Naproxen [Naprosyn TAB] 500 mg PO BID #30 tablet Sulfamethoxazole/Trimethoprim [Bactrim DS TAB] 1 each PO BID #10 tablet Referrals: PRIMARY CARE, [Primary Care Provider] - 3-5 Days [facility] [Outside] - 3-5 Days [facility] [Outside] - 3-5 Days [facility] [Outside] - 3-5 Days Forms: Accompanied Note, Work/School Release Form(ED) Time of Disposition: 19:53
== END 2018-11-22 20:35 | disposition home or self-care (01) ==
LOC: ED 15:11
CPT/HCPCS: 99281

== ENCOUNTER 2018-11-25 12:51 | Emergency (ER) | payer MEDICARE ==
[2018-11-25 13:08] VITALS: BP 116/75
[2018-11-25] MEDS ORDERED: NORCO 5/325 PO STA (14:07)
--- NOTE | 2018-11-25 14:12 | Emergency Department Report ---
- General Chief Complaint: Laceration/Recheck/Suture Stated Complaint: DRESSING CHANGE Time Seen by Provider: 11/25/18 14:07 Source: patient Mode of arrival: Ambulatory Limitations: No Limitations - History of Present Illness Initial Comments: 63-year-old male, status post incision and drainage of an abscess to his left back scapular region presents emergency department for reevaluation. Complains of continued pain to the area. Wound was packed with gauze reports no fever, chills, sweats, been taking his medication as prescribed. No complications. -: days(s) (2) Place: other (procedure was done at this hospital) Patient Tetanus UTD: Yes Associated Symptoms: pain - Related Data Home Medications Medication Instructions Recorded Confirmed Last Taken Cholecalciferol (Vitamin D3) 2,000 unit PO QDAY 02/27/16 06/10/16 Unknown [Vitamin D-3] Gabapentin [Neurontin] 300 mg PO Q8HR 02/27/16 06/10/16 Unknown Levothyroxine (Nf) [Synthroid] 200 mcg PO QAM 02/27/16 06/10/16 Unknown Omeprazole [PriLOSEC] 20 mg PO QDAY 02/27/16 06/10/16 Unknown Previous Rx's Medication Instructions Recorded Last Taken Type Apixaban [Eliquis] 5 mg PO BID #60 tablet 02/12/17 Unknown Rx Metoprolol Succinate 25 mg PO DAILY #30 tab.er.24h 02/12/17 Unknown Rx Naproxen [Naprosyn TAB] 500 mg PO BID #30 tablet 11/22/18 Unknown Rx Sulfamethoxazole/Trimethoprim 1 each PO BID #10 tablet 11/22/18 Unknown Rx [Bactrim DS TAB] Allergies Allergy/AdvReac Type Severity Reaction Status Date / Time oxycodone AdvReac Nausea Verified 02/12/17 13:06 ED Review of Systems ROS: Stated complaint: DRESSING CHANGE Other details as noted in HPI Constitutional: denies: chills, fever Eyes: denies: eye pain, eye discharge, vision change ENT: denies: ear pain, throat pain Respiratory: denies: cough, shortness of breath, wheezing Cardiovascular: denies: chest pain, palpitations Endocrine: no symptoms reported Gastrointestinal: denies: abdominal pain, nausea, diarrhea Genitourinary: denies: urgency, dysuria Musculoskeletal: denies: back pain, joint swelling, arthralgia Skin: change in color. denies: rash, lesions Neurological: denies: headache, weakness, paresthesias Psychiatric: denies: anxiety, depression Hematological/Lymphatic: denies: easy bleeding, easy bruising ED Past Medical Hx - Past Medical History Previous Medical History?: Yes Hx Hypertension: Yes Hx GERD: Yes Hx Psychiatric Treatment: Yes Additional medical history: ANKYLOSING SPONDYLITIS. HYPOTHYROID. drug abuse - Surgical History Past Surgical History?: Yes Additional Surgical History: right ankle. RIGHT KNEE REPLACEMENT. LEFT WRIST SURGERY. TURP. THYROIDECTOMY - Social History Smoking Status: Current Every Day Smoker Substance Use Type: Alcohol - Medications Home Medications: Home Medications Medication Instructions Recorded Confirmed Last Taken Type Cholecalciferol (Vitamin D3) 2,000 unit PO QDAY 02/27/16 06/10/16 Unknown History [Vitamin D-3] Gabapentin [Neurontin] 300 mg PO Q8HR 02/27/16 06/10/16 Unknown History Levothyroxine (Nf) [Synthroid] 200 mcg PO QAM 02/27/16 06/10/16 Unknown History Omeprazole [PriLOSEC] 20 mg PO QDAY 02/27/16 06/10/16 Unknown History Apixaban [Eliquis] 5 mg PO BID #60 tablet 02/12/17 Unknown Rx Metoprolol Succinate 25 mg PO DAILY #30 tab.er.24h 02/12/17 Unknown Rx Naproxen [Naprosyn TAB] 500 mg PO BID #30 tablet 11/22/18 Unknown Rx Sulfamethoxazole/Trimethoprim 1 each PO BID #10 tablet 11/22/18 Unknown Rx [Bactrim DS TAB] ED Physical Exam - General Limitations: No Limitations General appearance: alert, in no apparent distress - Head Head exam: Present: atraumatic, normocephalic - Eye Eye exam: Present: normal appearance - ENT ENT exam: Present: mucous membranes moist - Neck Neck exam: Present: normal inspection, full ROM - Respiratory Respiratory exam: Present: normal lung sounds bilaterally. Absent: respiratory distress - Cardiovascular Cardiovascular Exam: Present: regular rate, normal rhythm. Absent: systolic murmur, diastolic murmur, rubs, gallop - GI/Abdominal GI/Abdominal exam: Present: soft, normal bowel sounds - Rectal Rectal exam: Present: deferred - Extremities Exam Extremities exam: Present: normal inspection - Back Exam Back exam: Present: normal inspection - Neurological Exam Neurological exam: Present: alert, oriented X3 - Psychiatric Psychiatric exam: Present: normal affect, normal mood - Skin Skin exam: Present: warm, dry, normal color, erythema (. Follow wound as it is still present without phone calls is some redness and swelling noted. No lymphangitis. Pain with palpation to the region.). Absent: intact, rash ED Course Vital Signs 11/25/18 12:59 Temperature 97.5 F L Pulse Rate 58 L Respiratory 18 Rate Blood Pressure 116/75 O2 Sat by Pulse 96 Oximetry ED Medical Decision Making - Medical Decision Making The packing was removed with no complications. Wound was expressed copious amounts of pus was evacuated from the wound. Wound was then and redressed. Discussed importance of continuing medication compliance and and management with the entire microbial soaps. Critical care attestation.: If time is entered above; I have spent that time in minutes in the direct care of this critically ill patient, excluding procedure time. ED Disposition Clinical Impression: Abscess or cellulitis of back Disposition: DC-01 TO HOME OR SELFCARE Is pt being admited?: No Does the pt Need Aspirin: No Condition: Stable Instructions: Abscess (ED) Referrals: [facility] [Provider Group] - 3-5 Days
== END 2018-11-25 14:26 | disposition home or self-care (01) ==
LOC: ED 12:51
DX: L02.212 Cutaneous abscess of back [any part, except buttock and flank] (principal); M54.9 Dorsalgia, unspecified; I10 Essential (primary) hypertension; K21.9 Gastro-esophageal reflux disease without esophagitis; F17.200 Nicotine dependence, unspecified, uncomplicated; Z90.89 Acquired absence of other organs; Z88.5 Allergy status to narcotic agent
CPT/HCPCS: 99282

== ENCOUNTER 2018-12-22 00:54 | Emergency (ER) | payer MEDICARE ==
[2018-12-22] MEDS ORDERED: NACL 0.9% 1000 ML 1,000 ML IV ONE ×2 (01:29→01:30)
--- NOTE | 2018-12-22 01:35 | Emergency Department Report ---
HPI - General Chief Complaint: Medical Clearance Time Seen by Provider: 12/22/18 01:22 - HPI HPI: Room 22 The patient is a 63-year-old male presenting with a chief complaint of suicidal ideation. The patient states he relapsed on crack cocaine today got depressed. Patient states he did not want to live anymore so he took 3 hydrocodone/Tylenol (10/325) and 1 Seroquel sometime tonight. Patient denies any other coingestants Location: Mental state Duration: [See above] Quality: Suicidal Severity: Severe Modifying factors: [see above] Context: [see above] Mode of transportation: [not driving] ED Past Medical Hx - Past Medical History Hx Hypertension: Yes Hx GERD: Yes Hx Psychiatric Treatment: Yes Additional medical history: ANKYLOSING SPONDYLITIS. HYPOTHYROID. drug abuse - Surgical History Additional Surgical History: right ankle. RIGHT KNEE REPLACEMENT. LEFT WRIST SURGERY. TURP. THYROIDECTOMY - Family History Family history: no significant - Social History Smoking Status: Current Every Day Smoker (2/3 pack per day) Substance Use Type: Cocaine - Medications Home Medications: Home Medications Medication Instructions Recorded Confirmed Last Taken Type Cholecalciferol (Vitamin D3) 2,000 unit PO QDAY 02/27/16 12/22/18 Unknown History [Vitamin D-3] Gabapentin [Neurontin] 300 mg PO Q8HR 02/27/16 12/22/18 Unknown History Levothyroxine (Nf) [Synthroid] 200 mcg PO QAM 02/27/16 12/22/18 Unknown History Omeprazole [PriLOSEC] 20 mg PO QDAY 02/27/16 12/22/18 Unknown History Apixaban [Eliquis] 5 mg PO BID #60 tablet 02/12/17 12/22/18 Unknown Rx Metoprolol Succinate 25 mg PO DAILY #30 tab.er.24h 02/12/17 12/22/18 Unknown Rx Naproxen [Naprosyn TAB] 500 mg PO BID #30 tablet 11/22/18 12/22/18 Unknown Rx ED Review of Systems ROS: Stated complaint: DRUG ABUSE,DEPRESSION Other details as noted in HPI Constitutional: no symptoms reported Eyes: denies: eye pain ENT: denies: throat pain Respiratory: no symptoms reported Cardiovascular: denies: chest pain Endocrine: no symptoms reported Gastrointestinal: denies: abdominal pain Genitourinary: denies: dysuria Musculoskeletal: denies: back pain Neurological: denies: headache Physical Exam - Physical Exam Vital Signs: Vital Signs 12/22/18 01:00 Temperature 97.7 F Pulse Rate 83 Blood Pressure 87/55 O2 Sat by Pulse 96 Oximetry Vital Signs 12/22/18 12/22/18 12/22/18 01:00 02:16 02:25 Temperature 97.7 F Pulse Rate 83 73 68 Respiratory 18 16 Rate Blood Pressure 87/55 Blood Pressure 104/66 114/69 [Left] O2 Sat by Pulse 96 100 100 Oximetry 12/22/18 12/22/18 02:27 03:50 Temperature Pulse Rate 65 Respiratory 16 16 Rate Blood Pressure Blood Pressure 129/69 [Left] O2 Sat by Pulse 100 100 Oximetry Physical Exam: GENERAL: The patient is well-developed well-nourished []. [] HEENT: Normocephalic. Atraumatic. Extraocular motions are intact. Patient has moist mucous membranes. NECK: Supple. Trachea midline CHEST/LUNGS: Clear to auscultation. There is no respiratory distress noted. HEART/CARDIOVASCULAR: Regular. There is no tachycardia. There is no gallop rub or murmur. ABDOMEN: Abdomen is soft, nontender. Patient has normal bowel sounds. There is no abdominal distention. SKIN: There is no rash. There is no edema. There is no diaphoresis. NEURO: The patient is awake, alert, and oriented. The patient is cooperative. The patient has normal speech MUSCULOSKELETAL: There is no evidence of acute injury. ED Course Vital Signs 12/22/18 01:00 Temperature 97.7 F Pulse Rate 83 Blood Pressure 87/55 O2 Sat by Pulse 96 Oximetry ED Medical Decision Making - Lab Data Result diagrams: 12/22/18 01:30 12/22/18 01:30 Laboratory Tests 12/22/18 12/22/18 12/22/18 01:30 01:30 01:30 WBC 6.7 RBC 4.99 Hgb 15.4 H Hct 46.3 H MCV 93 MCH 31 MCHC 33 RDW 14.5 Plt Count 300 Lymph % (Auto) 29.4 [place] % (Auto) 11.4 H Eos % (Auto) 0.4 Baso % (Auto) 0.8 Lymph # 2.0 [place]dwell # 0.8 Eos # 0.0 Baso # 0.1 Seg Neutrophils % 58.0 Seg Neutrophils # 3.9 PT INR APTT Sodium 144 Potassium 3.8 Chloride 102.3 Carbon Dioxide 28 Anion Gap 18 BUN 15 Creatinine 0.9 Estimated GFR > 60 BUN/Creatinine Ratio 17 Glucose 105 H Calcium 9.7 Total Bilirubin 1.00 AST 13 ALT 11 Alkaline Phosphatase 89 Total Creatine Kinase CK-MB (CK-2) CK-MB (CK-2) Rel Index Troponin T Total Protein 7.6 Albumin 4.7 Albumin/Globulin Ratio 1.6 Salicylates < 0.3 L Acetaminophen Plasma/Serum Alcohol 12/22/18 12/22/18 12/22/18 01:30 01:30 01:30 WBC RBC Hgb Hct MCV MCH MCHC RDW Plt Count Lymph % (Auto) [place] % (Auto) Eos % (Auto) Baso % (Auto) Lymph # [place]dwell # Eos # Baso # Seg Neutrophils % Seg Neutrophils # PT INR APTT Sodium Potassium Chloride Carbon Dioxide Anion Gap BUN Creatinine Estimated GFR BUN/Creatinine Ratio Glucose Calcium Total Bilirubin AST ALT Alkaline Phosphatase Total Creatine Kinase 233 H CK-MB (CK-2) 3.1 CK-MB (CK-2) Rel Index 1.3 Troponin T < 0.010 Total Protein Albumin Albumin/Globulin Ratio Salicylates Acetaminophen < 5.0 L Plasma/Serum Alcohol < 0.01 12/22/18 01:30 WBC RBC Hgb Hct MCV MCH MCHC RDW Plt Count Lymph % (Auto) [place] % (Auto) Eos % (Auto) Baso % (Auto) Lymph # [place]dwell # Eos # Baso # Seg Neutrophils % Seg Neutrophils # PT 14.1 INR 1.05 APTT 36.8 H Sodium Potassium Chloride Carbon Dioxide Anion Gap BUN Creatinine Estimated GFR BUN/Creatinine Ratio Glucose Calcium Total Bilirubin AST ALT Alkaline Phosphatase Total Creatine Kinase CK-MB (CK-2) CK-MB (CK-2) Rel Index Troponin T Total Protein Albumin Albumin/Globulin Ratio Salicylates Acetaminophen Plasma/Serum Alcohol - EKG Data -: EKG Interpreted by Me EKG shows normal: sinus rhythm Rate: normal - EKG Data When compared to previous EKG there are: previous EKG unavailable Interpretation: nonspecific ST-T wave laz (T-wave inversion in lead aVL, V2) - Differential Diagnosis suicidal ideation, cocaine abuse, drug overdose Critical care attestation.: If time is entered above; I have spent that time in minutes in the direct care of this critically ill patient, excluding procedure time. ED Disposition Clinical Impression: Suicidal ideation, Drug overdose Disposition: [id number] PSY HOSP/PSY UNIT Is pt being admited?: No Does the pt Need Aspirin: No Condition: Serious Time of Disposition: 03:54 (awaiting acceptance)
[2018-12-22 01:49] LABS: Basophils # (Auto) 0.1 K/mm3 (0.0-0.1); Basophils % (Auto) 0.8 % (0.0-1.8); Eosinophils % (Auto) 0.4 % (0.0-4.3); Hematocrit 46.3 % (35.5-45.6); Hemoglobin 15.4 gm/dl (11.8-15.2); Lymphocytes % (Auto) 29.4 % (13.4-35.0); Mean Corpuscular HGB Conc 33 % (32-34); Mean Corpuscular Volume 93 fl (84-94); Monocytes # (Auto) 0.8 K/mm3 (0.0-0.8); Monocytes % (Auto) 11.4 % (0.0-7.3); Platelet Count 300 K/mm3 (140-440); Red Blood Count 4.99 M/mm3 (3.65-5.03); Red Cell Distribution Width 14.5 % (13.2-15.2)
[2018-12-22 02:06] LABS: Creatine Kinase MB 3.1 ng/mL (0.0-4.0)
[2018-12-22 02:07] LABS: INR 1.05 (0.87-1.13)
[2018-12-22 02:08] LABS: Partial Thromboplastin Time 36.8 Sec. (24.2-36.6)
[2018-12-22 02:10] LABS: Alanine Aminotransferase 11 units/L (7-56); Albumin 4.7 g/dL (3.9-5); BUN/Creatinine Ratio 17; Blood Urea Nitrogen 15 mg/dL (9-20); Calcium 9.7 mg/dL (8.4-10.2); Hemolysis Index 15
[2018-12-22] MEDS ORDERED: TYLENOL PO PRN (05:24)
[2018-12-22 05:34] LABS: Bilirubin,Urine NEG (Negative); Blood,Urine MOD (Negative); Color,Urine Yellow (Yellow); Mucus,Urine 1+ /HPF; Protein,Urine <15 mg/dL mg/dL (Negative); Urobilinogen,Urine < 2.0 mg/dL (<2.0)
[2018-12-22 05:41] LABS: Amphetamine Screen,Urine PRESUMPTIVE NEGATIVE; Benzodiazepines Screen,Urine PRESUMPTIVE NEGATIVE; Methadone Screen,Urine PRESUMPTIVE NEGATIVE; Opiate Screen,Urine PRESUMPTIVE NEGATIVE
[2018-12-22] MEDS: NEURONTIN PO SCH ×2 (05:43→16:30)
[2018-12-22 05:53] LABS: Cannabinoid Screen,Urine PRESUMPTIVE POSITIVE; Cocaine Screen,Urine PRESUMPTIVE POSITIVE
[2018-12-22] MEDS ORDERED: SYNTHROID PO SCH (06:00)
[2018-12-22] MEDS ORDERED: NON-FORMULARY (Cholecalciferol (Vitamin D3) [Vitamin D3] 2,000 UNIT) PO SCH (10:00)
[2018-12-22] MEDS ORDERED: PROTONIX PO SCH (10:00)
[2018-12-22] MEDS ORDERED: NAPROSYN PO SCH (10:00)
[2018-12-22] MEDS ORDERED: NON-FORMULARY (Omeprazole [Prilosec] 20 MG) PO SCH (10:00)
[2018-12-22] MEDS ORDERED: VITAMIN D3 PO SCH (10:00)
[2018-12-22] MEDS ORDERED: NON-FORMULARY (Levothyroxine (Nf) [Synthroid (Nf)] 200 MCG) PO SCH (10:00)
[2018-12-24 11:26] VITALS: BP 112/59
== END 2018-12-22 18:50 ==
LOC: ED 00:54
DX: T40.2X2A Poisoning by other opioids, intentional self-harm, initial encounter (principal); I10 Essential (primary) hypertension; K21.9 Gastro-esophageal reflux disease without esophagitis; E03.9 Hypothyroidism, unspecified; F17.200 Nicotine dependence, unspecified, uncomplicated; F14.10 Cocaine abuse, uncomplicated; Y92.89 Other specified places as the place of occurrence of the external cause
CPT/HCPCS: 36415; 80053; 80307; 81001; 82550; 82553; 84484; 85025; 85610; 85730; 93005; 93010; 99285; G0480; J7030; 80320